=== PATIENT | female | born 1940 | race Two or more races ===

== ENCOUNTER 2019-06-10 06:08 | Day surgery (SDC) | payer OTHER ==
[~2019-06-10 06:08] MED LIST: PROLIA60 MG/1 ML SQ
== END 2019-06-10 12:55 | disposition home or self-care (01) ==
LOC: CIR.AMB 06:08
DX: M65.842 Other synovitis and tenosynovitis, left hand (principal)

== ENCOUNTER 2023-04-30 07:57 | Outpatient (CLI) | payer OTHER | END 2023-04-30 07:59 | disposition home or self-care (01) | LOC: NUCLEAR 07:57 | PROVIDERS: ATTEND Thoracic Surgery (Cardiothoracic Vascular Surgery) | DX: I87.2 Venous insufficiency (chronic) (peripheral) (principal) ==